=== PATIENT | male | born 1960 | race Caucasian/White ===

== ENCOUNTER 2018-10-11 21:46 | Outpatient (CLI) | payer OTHER, BC | END 2018-10-11 21:47 | disposition short-term general hospital (02) | LOC: EMS 21:46 | PROVIDERS: ATTEND Surgery | DX: S49.91XA Unspecified injury of right shoulder and upper arm, initial encounter (principal); S59.911A Unspecified injury of right forearm, initial encounter; R42 Dizziness and giddiness; V20.4XXA Motorcycle driver injured in collision with pedestrian or animal in traffic accident, initial encounter; Y92.413 State road as the place of occurrence of the external cause | CPT/HCPCS: A0425; A0427 ==

== ENCOUNTER 2022-07-28 08:51 | Outpatient (CLI) | payer BC ==
[2022-07-28] MEDS ORDERED: iohexoL-300 100 ML VIAL ONE (09:42)
[2022-07-28] MEDS ORDERED: iohexoL-300 100 ML VIAL IVP ONE (11:23)
--- NOTE | 2022-07-28 13:08 | CT Report ---
PROCEDURE: ANGIO CHEST W/WO INDICATIONS: Thoracic aortic aneurysm CONTRAST: 80ml OMnipaque 300 TECHNIQUE: After the administration of intravenous contrast, 2 mm axial images were acquired from the pulmonary apices to the posterior costophrenic angles during the arterial phase. In addition, 1 mm lung kernel and 5 mm soft tissue kernel reconstructions were performed. 3-dimensional coronal oblique maximum int ensity projection (MIP) reformats, 8 mm axial MIP, and 5 mm coronal and sagittal MPR reformats were t hen performed through the thorax. For radiation dose reduction, the following was used: automated exp osure control, adjustment of mA and/or kV according to patient size. COMPARISON: None FINDINGS: Image quality: Excellent. Aorta and its attachments: There is a large ascending aortic aneurysm. Maximum diameter, at approxima tely the mid ascending aorta, is 5.1 cm. Reference axial image 36/6 and sagittal image 90/15. At the aortic root, the ascending aorta measures 4.0 cm. There is classic three-vessel arch anatomy. Great v essel origins are widely patent. There are tortuous. Just beyond the subclavian, the aorta has a norm al caliber, measuring 2.3 cm. The descending thoracic aorta is of normal caliber. Celiac, SMA, and bi lateral renal arteries are patent. There is a question of possible beading of the renal arteries sugg esting the possibility of fibromuscular dysplasia. Pulmonary tree: Normal caliber. No pulmonary emboli. Lungs and pleura: No consolidation. No pleural effusions. No pneumothorax. 4 mm right lower lobe pul monary nodule, image 137/7. Mediastinum: Heart size is normal. No pericardial effusions. Moderate coronary artery calcifications. No mediastinal adenopathy by size criteria. Chest wall and lower neck: Thyroid is unremarkable. No axillary or supraclavicular adenopathy by size . Bones: No aggressive osseous abnormality. Upper questionable beading of renal arteries. Gallstone in the gallbladder. IMPRESSION: 1. Significantly sized ascending aortic aneurysm, measuring 5.3 cm. 2. Moderate coronary artery calcifications. 3. 4 mm right lower lobe pulmonary nodule. 4. Question beading of the bilateral renal arteries, raising the question of fibromuscular dysplasia. Comment: Recommend either CTA Abdomen or MR Angio Abdomen to evaluate the renal arteries. Additional Comment: As per the Fleischner Society criteria,If the patient is at low risk for lung can cer, no further follow-up is required. If the patient has risk factors for lung cancer, repeat evalua tion with a low-dose noncontrast chest CT may be obtained in 12 months time. If the nodule is stable at that point, no further follow-up is required. Reviewed by: Mejia Tubbs MD on 07/28/2022 1:06 PM PDT Approved by: Mejia Tubbs MD on 07/28/2022 1:06 PM PDT Station ID: [id number]
== END 2022-07-28 08:52 | disposition home or self-care (01) ==
LOC: DI 08:51
PROVIDERS: ATTEND Psychiatry & Neurology Neurology
DX: I71.21 Aneurysm of the ascending aorta, without rupture (principal); I25.10 Atherosclerotic heart disease of native coronary artery without angina pectoris; R91.1 Solitary pulmonary nodule
CPT/HCPCS: 36415; 71275; 82565; Q9967

== ENCOUNTER 2023-02-16 12:04 | Outpatient (CLI) | payer BC | END 2023-02-16 12:05 | disposition short-term general hospital (02) | LOC: EMS 12:04 | DX: T22.331A Burn of third degree of right upper arm, initial encounter (principal); T22.321A Burn of third degree of right elbow, initial encounter; T21.21XA Burn of second degree of chest wall, initial encounter; T24.311A Burn of third degree of right thigh, initial encounter; T21.06XA Burn of unspecified degree of male genital region, initial encounter; X12.XXXA Contact with other hot fluids, initial encounter; Y92.009 Unspecified place in unspecified non-institutional (private) residence as the place of occurrence of the external cause | CPT/HCPCS: A0425; A0427 ==

== ENCOUNTER 2023-10-09 16:16 | Outpatient (CLI) | payer BC | END 2023-10-09 16:17 | disposition EMS.NT | LOC: EMS 16:16 | DX: Z03.89 Encounter for observation for other suspected diseases and conditions ruled out (principal) ==